=== PATIENT | female | born 1945 | race Caucasian/White ===

== ENCOUNTER 2021-03-29 11:11 | Outpatient (CLI) | payer MEDICARE | END 2021-03-29 11:12 | disposition home or self-care (01) | LOC: CSHMAMMO 11:11 | PROVIDERS: ATTEND Family Medicine | DX: Z12.31 Encounter for screening mammogram for malignant neoplasm of breast (principal); Z80.3 Family history of malignant neoplasm of breast | CPT/HCPCS: 77063; 77067 ==

== ENCOUNTER 2022-08-14 19:15 | Emergency (ER) | payer MEDICARE ==
[2022-08-14 21:00] LABS: #Eosinphils 0.2 10x3/uL (0.0-0.5); #Monocytes 0.4 10x3/uL (0.0-1.1); #Neutrophils 2.5 10x3/uL (1.5-8.4); %Basophils 0.2 % (0.0-2.0); %Eosinophils 3.8 % (0.0-6.0); %Lymphocytes 43.7 % (18.0-47.0); %Monocytes 7.1 % (0.0-10.0); Hemoglobin 12.8 g/dL (12.0-15.5); Mean Corpuscular HGB CONC 32.1 g/dL (32.0-36.0); Mean Corpuscular Hemoglobin 29.5 pg (27.0-33.0); Mean Corpuscular Volume 91.9 fl (81.6-98.3); Mean Platelet Volume 9.5 fl (7.4-10.4); Platelet Count 258 10x3/uL (150-450); RBC Distribution Width 12.7 % (11.5-14.5); Red Blood Cell (RBC) Count 4.34 10x6/uL (3.90-5.03); White Blood Cell (WBC) Count 5.5 10x3/uL (3.5-10.5)
[2022-08-14 21:20] LABS: ALT (SGPT) 12 U/L (8-55); AST (SGOT) 19 U/L (5-34); Albumin 4.1 g/dL (3.4-4.8); Alkaline Phosphatase 59 U/L (40-110); Anion Gap 15 mmol/L (10-20); BUN (Urea Nitrogen) 32 mg/dL (9.8-20.1); Bilirubin, Total 0.2 mg/dL (0.2-1.2); CK (CPK) 80 U/L (29-168); Calc. Creatinine Clearance 0 mL/min (70-130); Calcium 9.2 mg/dL (7.8-10.44); Carbon Dioxide 21 mmol/L (23-31); Chloride 109 mmol/L (98-107); Estimated GFR 83; Globulin 2.5 g/dL (2.4-3.5); Glucose 106 mg/dL (83-110); Magnesium 2.2 mg/dL (1.6-2.6); Potassium 4.3 mmol/L (3.5-5.1); Protein, Total 6.6 g/dL (5.8-8.1); Sodium 141 mmol/L (136-145)
== END 2022-08-14 22:34 | disposition home or self-care (01) ==
LOC: CSHERS 19:15
DX: I10 Essential (primary) hypertension (principal); E78.5 Hyperlipidemia, unspecified; Z79.899 Other long term (current) drug therapy
CPT/HCPCS: 36415; 71045; 80053; 82550; 83735; 84484; 85025; 93005

== ENCOUNTER 2023-05-12 12:38 | Outpatient (CLI) | payer MEDICARE | END 2023-05-12 12:39 | disposition home or self-care (01) | LOC: CSHMAMMO 12:38 | PROVIDERS: ATTEND Family Medicine | DX: Z12.31 Encounter for screening mammogram for malignant neoplasm of breast (principal); Z80.3 Family history of malignant neoplasm of breast | CPT/HCPCS: 77063; 77067 ==

== ENCOUNTER 2023-05-15 08:47 | Outpatient (CLI) | payer MEDICARE | END 2023-05-15 08:48 | disposition home or self-care (01) | LOC: CSHLAB 08:47 | PROVIDERS: ATTEND Obstetrics & Gynecology | DX: Z01.812 Encounter for preprocedural laboratory examination (principal); N81.9 Female genital prolapse, unspecified | CPT/HCPCS: 85027; 86850; 86900; 86901 ==

== ENCOUNTER 2023-05-19 08:30 | Day surgery (SDC) | payer MEDICARE ==
[2023-05-15 09:29] VITALS: BMI 28.1
[2023-05-15 10:22] LABS: Hematocrit 43.8 % (34.9-44.5); Hemoglobin 14.2 g/dL (12.0-15.5); Mean Corpuscular HGB CONC 32.4 g/dL (32.0-36.0); Mean Corpuscular Hemoglobin 30.5 pg (27.0-33.0); Mean Corpuscular Volume 94.2 fl (81.6-98.3); Mean Platelet Volume 10.5 fl (7.4-10.4); Platelet Count 212 10x3/uL (150-450); RBC Distribution Width 13.2 % (11.5-14.5); Red Blood Cell (RBC) Count 4.65 10x6/uL (3.90-5.03); White Blood Cell (WBC) Count 6.4 10x3/uL (3.5-10.5)
[2023-05-19] MEDS ORDERED: CEFAZOLIN 2 GM VIAL ONE (09:50)
[2023-05-19] MEDS ORDERED: Lidocaine 1% w/Epinephrine 1:100K 20 ML VIAL ONE (09:50)
[2023-05-19] MEDS ORDERED: PROPOFOL 20 ML ONE (09:52)
[2023-05-19] MEDS ORDERED: Ondansetron PF 4 MG/2 ML Vial ONE (09:52)
[2023-05-19] MEDS ORDERED: fentaNYL 50 mcg/mL 1 mL Vial ONE (09:52)
[2023-05-19] MEDS ORDERED: Dexamethasone 20 MG/5 ML VIAL ONE (09:52)
[2023-05-19] MEDS ORDERED: Lidocaine 2% PF 5 ML VIAL ONE (09:53)
[2023-05-19] MEDS ORDERED: Vasopressin 20 UNITS/ML VIAL ONE (10:31)
[2023-05-19] MEDS ORDERED: Glycopyrrolate 0.2 MG/ML 5 ML SYRINGE ONE (10:33)
[2023-05-19] MEDS ORDERED: Ketorolac Tromethamine 30 MG (1 mL) VIAL ONE (11:50)
[2023-05-19] MEDS ORDERED: HYDROcodone/Acetaminophen 5/325 mg Tablet ONE (12:33)
== END 2023-05-19 13:55 | disposition home or self-care (01) ==
LOC: CSHSDC 08:30
PROVIDERS: ATTEND Obstetrics & Gynecology
PROC: 0ULG7ZZ Occlusion of Vagina, Via Natural or Artificial Opening (ICD-10-PCS; principal; 2023-05-19)
PROC: 0WQN0ZZ Repair Female Perineum, Open Approach (ICD-10-PCS; 2023-05-19)
DX: N81.3 Complete uterovaginal prolapse (principal); N81.2 Incomplete uterovaginal prolapse; E78.5 Hyperlipidemia, unspecified; Z79.899 Other long term (current) drug therapy; Z87.891 Personal history of nicotine dependence
CPT/HCPCS: 57120; 57260; 85027; 86850; 86900; 86901; J3010; 88305; J1100; J1885; J2001; J2405; J2704

== ENCOUNTER 2023-09-25 10:17 | Emergency (ER) | payer MEDICARE ==
[2023-09-25] MEDS ORDERED: Bacitracin 1 PK ONE (10:51)
[2023-09-25] MEDS ORDERED: Lidocaine 1% PF 5 ML VIAL ONE (10:51)
[2023-09-25] MEDS ORDERED: Acetaminophen 500 MG TAB ONE (10:52)
== END 2023-09-25 12:28 | disposition home or self-care (01) ==
LOC: CSHERS 10:17
DX: S01.511A Laceration without foreign body of lip, initial encounter (principal); I10 Essential (primary) hypertension; W01.198A Fall on same level from slipping, tripping and stumbling with subsequent striking against other object, initial encounter
CPT/HCPCS: 12011; 99283